=== PATIENT | male | born 1940 | race Caucasian/White ===

== ENCOUNTER 2019-08-17 20:38 | Emergency (ER) | payer MEDICARE ==
[2019-08-17 21:31] LABS: ABS Basophils 0.1 10^3/ul (0-0.2); ABS Eosinophils 0.2 10^3/ul (0-0.6); ABS Lymphocytes 1.6 10^3/ul (1.0-4.8); ABS Monocytes 0.4 10^3/ul (0-0.8); ABS Neutrophils 2.8 10^3/ul (1.5-7.7); Eosinophil % 3.9 %; Hematocrit 44 % (42-52); Hemoglobin 15.1 g/dL (14.0-18.0); Lymphocyte % 32.4 %; Mean Corpuscular HGB Conc 34 g/dL (31-36); Mean Corpuscular Hemoglobin 31 pg (27-31); Mean Corpuscular Volume 90 fL (80-94); Nucleated Red Blood Cells % 0.1; Platelet Count 164 10^3/uL (150-450); Red Cell Distribution Width 13 % (10-15); White Blood Count 5.1 10^3/uL (3.5-10.8)
[2019-08-17 21:49] LABS: Albumin 3.8 g/dL (3.2-5.2); Albumin/Globulin Ratio 1.5 (1-3); BUN/Creatinine Ratio 22.6 (8-20); Calcium 9.4 mg/dL (8.6-10.3); EGFR Non-African American 61.2 (>60); Globulin 2.6 g/dL (2-4); Potassium 3.2 mmol/L (3.5-5.0); Total Bilirubin 0.5 mg/dL (0.2-1.0); Total Protein 6.4 g/dL (6.4-8.9)
[2019-08-17 21:50] LABS: Troponin I 0.01 ng/mL (<0.04)
[2019-08-17] MEDS ORDERED: NS 0.9% 1000 ML** 1,000 ML IV ONE ×2 (22:03→22:04)
--- NOTE | 2019-08-17 22:05 | ED ---
Syncope/Near Syncope - HPI Summary HPI Summary: This pt is an 78 Y/O M presenting to [facility] with a CC of a syncopal episode that occurred [employer]. He states that he had tightness in his neck, dizziness, and became diaphoretic while eating dinner at a restaurant at 2030. He states that he went outside for fresh air and had the episode. He states that he has not been having a lot of water and was traveling from 0930 this morning from [place]. He states that he has not eaten much today either. During the episode his arms and lower body was shaking and he began yawning. H denies any chest pain, SOB, headaches, tingling, numbness, or weakness in his extremities. He states that he has had a similar episode while he was in [place]. He states that he has no aggravating or alleviating factors. He has a PMHx of prostate surgery and a FHx of HTN. He denies any smoking or drug use but states that he drinks. He had a couple of drinks prior to the episode today. - History Of Current Complaint Chief Complaint: EDSyncope Time Seen by Provider: 08/17/19 21:50 Hx Obtained From: Patient Onset/Duration: Sudden Onset, Resolved Timing: Seconds Context: Witnessed Activity At Onset: At Rest Associated Head Trauma: No Aggravating Factor(s): Nothing Alleviating Factor(s): Nothing Associated Signs And Symptoms: Negative - chest pain, SOB, headaches, tingling, numbness, or weakness in his extremities, Diaphoresis, Dizzy, Other - tightness in his neck Related History: Similar Episode/Dx as - States a similar episode in [place] when he was diagnosed with dehydration - Allergies/Home Medications Allergies/Adverse Reactions: Allergies Allergy/AdvReac Type Severity Reaction Status Date / Time No Known Allergies Allergy Verified 08/17/19 22:26 PMH/Surg Hx/FS Hx/Imm Hx Previously Healthy: Yes Cardiovascular History: Reports: Hx Hypertension History: Reports: Other Problems/Disorders - Prostate complications Infectious Disease History: No Infectious Disease History: Denies: Traveled Outside the [place] in Last 30 Days - Social History Occupation: Retired Lives: With Family Alcohol Use: Daily Hx Substance Use: No Substance Use Type: Reports: None Hx Tobacco Use: No Smoking Status (MU): Never Smoked Tobacco Review of Systems Positive: Fatigue, Skin Diaphoresis Positive: Sore Throat - tightness Negative: Chest Pain Negative: Shortness Of Breath Musculoskeletal: Other - Shaking in his extremities Neurological: Negative - tingling Positive: Syncope. Negative: Headache, Weakness, Numbness All Other Systems Reviewed And Are Negative: Yes Physical Exam - Summary Physical Exam Summary: General: Well-developed, Well-nourished elderly male. No acute distress. HEENT: Normocephalic, Atraumatic. Eyes: Conjuctiva normal, PERRL. Ears: TMs within normal limits. Nares: (-) discharge, (-) erythema. Oropharynx: Clear, mucous membranes moist, (-) exudates. Neck: Soft, FROM, (-) lymphadenopathy, (-) thyromegaly, (-) JVD. Cardiovascular: Normal sinus rhythm, (-) murmur. Lungs: Clear to auscultation bilaterally (-) wheezes, (-) rales, (-) rhonchi. Abdomen: Soft, non-tender, non-distended, (-) organomegaly, normal bowel sounds. Back: (-) CVA tenderness Extremities: No edema. Skin: Warm, dry, (-) rash. Neuro: Alert and oriented x3, no focal deficits. Psychiatric: Mood normal, affect normal. Triage Information Reviewed: Yes Vital Signs On Initial Exam: Initial Vitals Temp Pulse Resp BP Pulse Ox 97.1 F 78 18 100/70 97 08/17/19 20:41 08/17/19 20:41 08/17/19 20:41 08/17/19 20:41 08/17/19 20:41 Vital Signs Reviewed: Yes Procedures - Sedation Patient Received Moderate/Deep Sedation with Procedure: No Diagnostics - Vital Signs Vital Signs Temp Pulse Resp BP Pulse Ox 08/17/19 20:41 97.1 F 78 18 100/70 97 - Laboratory Lab Results: Lab Results 08/17/19 08/17/19 08/17/19 Range/Units 21:22 21:22 21:22 WBC 5.1 (3.5-10.8) 10^3/uL RBC 4.90 (4.18-5.48) 10^6 /uL Hgb 15.1 (14.0-18.0) g/dL Hct 44 (42-52) % MCV 90 (80-94) fL MCH 31 (27-31) pg MCHC 34 (31-36) g/dL RDW 13 (10-15) % Plt Count 164 (150-450) 10^3/uL MPV 7.0 L (7.4-10.4) fL Neut % (Auto) 55.4 % Lymph % (Auto) 32.4 % [place] % (Auto) 7.2 % Eos % (Auto) 3.9 % Baso % (Auto) 1.1 % Absolute Neuts (auto) 2.8 (1.5-7.7) 10^3/ul Absolute Lymphs (auto) 1.6 (1.0-4.8) 10^3/ul Absolute Monos (auto) 0.4 (0-0.8) 10^3/ul Absolute Eos (auto) 0.2 (0-0.6) 10^3/ul Absolute Basos (auto) 0.1 (0-0.2) 10^3/ul Absolute Nucleated RBC 0.0 10^3/ul Nucleated RBC % 0.1 Sodium 138 (135-145) mmol/L Potassium 3.2 L (3.5-5.0) mmol/L Chloride 105 (101-111) mmol/L Carbon Dioxide 24 (22-32) mmol/L Anion Gap 9 (2-11) mmol/L BUN 26 H (6-24) mg/dL Creatinine 1.15 (0.67-1.17) mg/dL Est GFR ( Amer) 74.0 (>60) Est GFR (Non-Af Amer) 61.2 (>60) BUN/Creatinine Ratio 22.6 H (8-20) Glucose 147 H (70-100) mg/dL Calcium 9.4 (8.6-10.3) mg/dL Total Bilirubin 0.50 (0.2-1.0) mg/dL AST 29 (13-39) U/L ALT 25 (7-52) U/L Alkaline Phosphatase 61 (34-104) U/L Troponin I 0.01 (<0.04) ng/mL B-Natriuretic Peptide 11 (<=100) pg/mL Total Protein 6.4 (6.4-8.9) g/dL Albumin 3.8 (3.2-5.2) g/dL Globulin 2.6 (2-4) g/dL Albumin/Globulin Ratio 1.5 (1-3) Result Diagrams: 08/17/19 21:22 08/17/19 21:22 Lab Statement: Any lab studies that have been ordered have been reviewed, and results considered in the medical decision making process. - EKG 2105 Cardiac Rate: NL - 69 BPM EKG Rhythm: Sinus Rhythm ST Segment: Normal Ectopy: None Summary of EKG Findings: NSR at 69 BPM, P waves, QRS complex, and T waves are within normal limits, T waves and intervals are normal, no ischemic changes. This is a normal EKG. Interpreted by Dr. Katz at 210708/17/19. Course/Dx Course Of Treatment: 78-year-old male presents with near syncopal episode tonight. Patient had episode of dizziness and lightheadedness while eating dinner. Superior diaphoretic. Walked outside and sat down. Patient states he drove here today from [place]. Ate and drank very little fluids. Feels that he might be dehydrated. States similar symptoms happened previously when he was dehydrated. Patient improved significantly after IV fluids. Discharged to home. Advised him to increase his fluid intake. - Diagnoses Provider Diagnoses: Dehydration, Near syncope Discharge ED - Sign-Out/Discharge Documenting (check all that apply): Patient Departure - discharge - Discharge Plan Condition: Stable Disposition: HOME Patient Education Materials: Dehydration (ED), Near Syncope (ED) Referrals: [facility] [Outside] - 2 Days Additional Instructions: PLEASE FOLLOW UP WITH YOUR PRIMARY CARE PHYSICIAN WHEN YOU RETURN TO [place] OR FOLLOW UP WITH [facility] IN 2-3 DAYS. RETURN TO THE EMERGENCY DEPARTMENT WITH ANY NEW OR WORSENING SYMPTOMS. PLEASE DRINK PLENTY OF WATER DURING THE REST OF YOUR TRIP. - Billing Disposition and Condition Condition: STABLE Disposition: Home - Attestation Statements Document Initiated by Scribe: Yes Documenting Scribe: David Hoskins Provider For Whom Scribe is Documenting (Include Credential): Ursula Katz MD Scribe Attestation: David Slaughter, scribed for Ursula Katz MD on 08/18/19 at 0522. Scribe Documentation Reviewed: Yes Provider Attestation: The documentation as recorded by the David storm accurately reflects the service I personally performed and the decisions made by Ursula patten MD Status of Scribe Document: Viewed
[2019-08-17 23:22] LABS: Urine Appearance Clear; Urine Bilirubin Negative (Negative); Urine Blood Negative (Negative); Urine Color Yellow; Urine Glucose Negative (Negative); Urine Ketones Negative (Negative); Urine Nitrite Negative (Negative); Urine Protein Negative (Negative); Urine Specific Gravity 1.013 (1.010-1.030); Urine Urobilinogen Negative (Negative)
[2019-08-18 00:11] VITALS: BP 110/77
== END 2019-08-18 | disposition home or self-care (01) ==
LOC: ED 20:38
DX: R55 Syncope and collapse (principal); E86.0 Dehydration; I10 Essential (primary) hypertension
CPT/HCPCS: 36415; 80053; 81003; 83880; 84484; 85025; 93005; 96360; 96361; 99283